=== PATIENT | female | born 1950 | race Caucasian/White ===

== ENCOUNTER → 2016-05-20 | Day surgery (SDC) | payer BC ==
[2016-05-14 15:30] VITALS: Ht 171.5 cm; Wt 61.4 kg
[~2016-05-20] VITALS: Ht 171.5 cm; Wt 61.4 kg
[~2016-05-20] MED LIST: 500ML BSS 0.3ML EPI 1:1000PF IRRIG ONE; ACETAMINOPHEN 325 MG TAB PO PRN; AMVISC PLUS 0.8ML SYRINGE INT OCU ONE; ATROPINE SULFATE 0.1 MG/ML 5ML SYR IV PRN; BSS FLUSH ONE; CALC-51 PO; CIPROFLOXACIN; ENDOCOAT 0.85ML SYRINGE INT OCU ONE; EpHEDrine SULFATE INJ 50 MG/ML AMP IV PRN; EpINEphrine INJ 1MG/ML AMP 1 MG/ML AMP ONE; LACTATED RINGER'S 1000ML 500 ML IV SCH; LIDOCAINE 4% OP SOLN DROP CHARGE ONE; LIDOCAINE 4% OP SOLN DROP CHARGE OPR SCH; LIDOCAINE HCL 1% MPF 2 ML VIAL ONE; MIDAZOLAM HCL 1 MG/ML 2ML VIAL ONE; MISSING PHYSICIAN SIGNATURE ON ORDER SCH; MIX: 4ML BSS 1ML EPI 1:1000 PF TOP ONE; MOXIFLOXACIN OPH SOLN PER DROP CHARGE ONE; PHENYLEPHRINE HCL 10% OP SOLN 5 ML BTL OPR ONE; PHENYLEPHRINE HCL 2.5% OP SOLN PER DROP CHARGE OPR SCH; POVIDONE-IODINE OP SOLN 30 ML BTL ONE; PRED1SUS3 OPL; PRED1SUS3 OPR; PROPARACAINE 0.5% OP SOLN PER DROP CHARGE OPR SCH; PROPARACAINE HCL 0.5% OP SOLN 15 ML BTL OPR ONE; TOBRAMYCIN/DEXAMETHASONE OPH OINT PER APPLN CHARGE ONE; [UNRECOGNIZED DRUG - CODE] PO
[2016-05-20] MEDS: PHENYLEPHRINE HCL 10% OP SOLN 5 ML BTL OPR SCH ×3 (11:08→11:18)
[2016-05-20] MEDS: TROPICAMIDE 1% OP SOLN PER DROP CHARGE OPR SCH ×3 (11:09→11:19)
[2016-05-20] MEDS: CYCLOPENTOLATE HCL 1% OP SOLN PER DROP CHARGE OPR SCH ×3 (11:10→11:20)
[2016-05-20] MEDS: MOXIFLOXACIN OPH SOLN PER DROP CHARGE OPR SCH ×3 (11:11→11:21)
--- NOTE | 2016-05-20 11:17 | History & Physical Bridge - [place] ---
H&P Re-Evaluation Bridge Note: I have examined the patient, reviewed the History & Physical and in the interval since the performance of the History & Physical I have noted the following changes of clinical significance: No changes noted
--- NOTE | 2016-05-20 12:33 | [facility] Post Operative Brief Note ---
Immediate Operative Summary Operative Date May 20, 2016. Pre-Operative Diagnosis Right Eye Cataract Post-Operative Diagnosis same Procedure(s) Performed Right Cataract Phacoemulsification With Intraocular Lens Implant Surgeon Dr. Mary Otoole Sap Bi Architect Surgeon(s) 0 Estimated Blood Loss 0 Findings right cataract Specimens none Complication(s) None Disposition
[2016-05-20 12:35] VITALS: TEMP 36.4
--- NOTE | 2016-05-20 12:36 | [facility] Operative Report ---
Operative Report Date of Service May 20, 2016. Operative Report DATE OF OPERATION: 05/20/16 PREOPERATIVE DIAGNOSIS: Senile nuclear cataract and astigmatism, right eye POSTOPERATIVE DIAGNOSIS: Senile nuclear cataract and astigmatism, right eye PROCEDURE PERFORMED: Femtosecond laser-assisted phacoemulsification with intraocular lens implantation, right eye SURGEON: Dr. Masoud Otoole ANESTHESIA: Topical with 1% intracameral lidocaine and monitored anesthesia care COMPLICATIONS: None DESCRIPTION OF PROCEDURE: After positively identifying the patient both verbally and by wristband in the preoperative area, the right eye was marked as the operative eye. Using a sterile marker, the 3:00, 6:00 and 9:00 position on the limbus were marked after placing a drop of proparacaine. The patient was first brought to the laser room where the laser was used to create the capsulotomy, lens fragmentation, arcuate incisions, and main incision. The patient was then brought back to the operating room by the anesthesia and nursing staff where they were given a drop of tetracaine and betadine into the operative eye. They were then sterilely prepped and draped in the standard fashion typical for ophthalmic surgery. Steri-strips were placed along the upper eyelids to keep the lashes back, and a lid speculum was placed into the operative eye. At this point, a documented time out was performed with members of the ophthalmology, nursing, and anesthesia staffs all agreeing upon the correct patient, correct location for surgery, correct procedure, and correct type and power of intraocular lens to be implanted. The microscope was then swung into position. Then, a paracentesis wound was made using a sideport blade. Then, in sequence, 1% preservative-free lidocaine followed by Endocoat viscoelastic was injected into the anterior chamber. Next , the main incision was opened with a Shukri spatula, and Utrata forceps were used to remove the capsulotomy. Hydrodissection was then performed with BSS on a flat-tip cannula. Next, the phacoemulsification handpiece was introduced into the eye and used to remove the nucleus in a ntcysa-pzm-uptegmz fashion. This was done without complication and then the irrigation-aspiration handpiece was introduced into the eye and used to remove all remaining cortical and epinuclear material. Amvisc was then injected into the anterior chamber as well as into the capsular bag and using the lens injector system, a ZXR00 14.0 D lens, serial number [id number], and expiration date 03/2021 was injected into the capsular bag and rotated into the correct position. Next, the irrigation- aspiration handpiece was used to remove all remaining Amvisc. BSS was used to hydrate the main wound, and then BSS was injected into the paracentesis site to reach physiologic pressure and then the main wound was checked and found to be watertight. The patient was given drops of Vigamox and tobradex ointment into the operative eye, and then the surrounding area was cleaned and dried. A clear plastic shield was placed over the eye and the patient was then sat up and taken from the operating room by the anesthesia staff having tolerated the procedure well and suffering no complications. DISPOSITION: The patient was returned to the recovery room in stable condition. I attest to the content of the Intraoperative Record and any orders documented therein. Any exceptions are noted below.
--- NOTE | 2016-05-20 12:37 | Discharge Instructions-SurgCtr ---
Discharge Instructions Date of Service May 20, 2016. Visit Reason for Visit: Cataract Right Eye Discharge Discharge Diagnosis / Problem: right cataract Discharge Goals Goal(s): Decrease discomfort, Improve function Activity Recommendations Activity Limitations: as noted below Anesthesia . Post Anesthesia Instructions: If you have had General Anesthesia or IV Sedation: * Do not drive today. * Resume driving when surgeon permits. * Do not make important decisions or sign legal documents today. * Call surgeon for: 1. Temperature elevations greater than 101 degrees F. 2. Uncontrollable pain. 3. Excessive bleeding. 4. Persistent nausea and vomiting. 5. Medication intolerance (nausea, vomiting or rash). * For nausea and vomiting use only clear liquids such as: tea, soda, bouillon until nausea subsides, then gradually increase diet as tolerated. * If you have any concerns or questions, call your surgeon's office. If physician is unavailable and it is an emergency, call 911 or go to the nearest emergency room. . Instructions / Follow-Up Instructions / Follow-Up ACTIVITY RECOMMENDATIONS: * Light activities. * You may walk outside, read, watch television. * You may notice redness on the white part of the eye and some blurry vision - this is normal. MEDICATIONS: Resume previous medications unless instructed otherwise by your surgeon. Start all eye drops at 2:30 pm today: * Eye drops (today): Prednisone - one drop in operative eye every 2 hours while awake Ciprofloxacin - one drop in operative eye every 2 hours while awake SPECIAL CARE INSTRUCTIONS: * Tape plastic shield over eye to sleep at night. Call your doctor at with any concerns or problems. FOLLOW UP VISIT: Follow-up with Dr Otoole at [place] office as scheduled. Diet Recommendations Home Diet: no limitations Procedures Procedures Performed: Right Cataract Phacoemulsification With Intraocular Lens Implant Pending Studies Studies pending at discharge: no Medical Emergencies . Who to Call and When: Medical Emergencies: If at any time you feel your situation is an emergency, please call 911 immediately. . Non-Emergent Contact Non-Emergency issues call your: Surgeon . . "Provider Documentation" section prepared by Masoud Otoole.
--- NOTE | 2016-05-20 12:38 | Anesthesia Progress Nt - [facility] ---
Anesthesia Post Op Note Date & Time May 20, 2016 at 12:38 Vital Signs Pain Intensity: 0 Vital Signs Past 12 Hours Date Time Temp Pulse Resp B/P Pulse Ox O2 Delivery O2 Flow Rate FiO2 05/20/16 12:03 61 18 122/59 100 05/20/16 11:58 55 18 122/60 100 05/20/16 10:54 37.0 66 16 145/70 99 Room Air Notes Mental Status: alert / awake / arousable, participated in evaluation Pt Amnestic to Procedure: Yes Nausea / Vomiting: adequately controlled Pain: adequately controlled Airway Patency, RR, SpO2: stable & adequate BP & HR: stable & adequate Hydration State: stable & adequate Anesthetic Complications: no major complications apparent
[2016-05-20 12:55] VITALS: BP 129/59; PULSE 56; O2SAT 99
== END | disposition home or self-care (01) ==
LOC: X.SURG 10:30
PROVIDERS: ATTEND Ophthalmology
DX: H25.11 Age-related nuclear cataract, right eye (principal); H52.201 Unspecified astigmatism, right eye; Z85.828 Personal history of other malignant neoplasm of skin

== ENCOUNTER → 2016-06-03 | Day surgery (SDC) | payer BC ==
[2016-06-02 13:19] VITALS: Ht 171.5 cm; Wt 61.4 kg
[~2016-06-03] VITALS: Ht 171.5 cm; Wt 61.4 kg
[~2016-06-03] MED LIST changes: -CIPROFLOXACIN; -EpHEDrine SULFATE INJ 50 MG/ML AMP IV PRN; +LIDOCAINE 4% OP SOLN DROP CHARGE OPL SCH; -LIDOCAINE 4% OP SOLN DROP CHARGE OPR SCH; -MISSING PHYSICIAN SIGNATURE ON ORDER SCH; +PHENYLEPHRINE HCL 10% OP SOLN 5 ML BTL OPL ONE; -PHENYLEPHRINE HCL 10% OP SOLN 5 ML BTL OPR ONE; -PHENYLEPHRINE HCL 2.5% OP SOLN PER DROP CHARGE OPR SCH; -PRED1SUS3 OPL; +PROPARACAINE 0.5% OP SOLN PER DROP CHARGE OPL SCH; -PROPARACAINE 0.5% OP SOLN PER DROP CHARGE OPR SCH; +PROPARACAINE HCL 0.5% OP SOLN 15 ML BTL OPL ONE; -PROPARACAINE HCL 0.5% OP SOLN 15 ML BTL OPR ONE; +VISCOAT 0.5ML SYRINGE INT OCU ONE
[2016-06-03] MEDS: PHENYLEPHRINE HCL 2.5% OP SOLN PER DROP CHARGE OPL SCH ×3 (07:53→08:03)
[2016-06-03] MEDS: TROPICAMIDE 1% OP SOLN PER DROP CHARGE OPL SCH ×3 (07:54→08:04)
[2016-06-03] MEDS: CYCLOPENTOLATE HCL 1% OP SOLN PER DROP CHARGE OPL SCH ×3 (07:55→08:05)
[2016-06-03] MEDS: MOXIFLOXACIN OPH SOLN PER DROP CHARGE OPL SCH ×2 (07:56→08:01)
--- NOTE | 2016-06-03 08:33 | History & Physical Bridge - [place] ---
H&P Re-Evaluation Bridge Note: Addendum: We are performing femtosecond laser-assisted cataract surgery on her left eye
[2016-06-03 09:16] VITALS: TEMP 36.4
--- NOTE | 2016-06-03 09:16 | [facility] Post Operative Brief Note ---
Immediate Operative Summary Operative Date Jun 03, 2016. Pre-Operative Diagnosis Left Eye Cataract Post-Operative Diagnosis Same Procedure(s) Performed Left Eye Cataract Phacoemulsification With Intraocular Lens Implant, Symfony Lens Surgeon Dr. Otoole Weed Cutter Surgeon(s) None Estimated Blood Loss None Findings left cataract Specimens None Complication(s) None Disposition
--- NOTE | 2016-06-03 09:19 | [facility] Operative Report ---
Operative Report Date of Service Jun 03, 2016. Operative Report DATE OF OPERATION: 06/03/16 PREOPERATIVE DIAGNOSIS: Senile nuclear cataract and astigmatism, left eye POSTOPERATIVE DIAGNOSIS: Senile nuclear cataract and astigmatism, left eye PROCEDURE PERFORMED: Femtosecond laser-assisted phacoemulsification with intraocular lens implantation, left eye SURGEON: Dr. Masoud Otoole ANESTHESIA: Topical with 1% intracameral lidocaine and monitored anesthesia care COMPLICATIONS: None DESCRIPTION OF PROCEDURE: After positively identifying the patient both verbally and by wristband in the preoperative area, the left eye was marked as the operative eye. Using a sterile marker, the 3:00, 6:00 and 9:00 position on the limbus were marked after placing a drop of proparacaine. The patient was first brought to the laser room where the femtosecond laser was used to create the capsulotomy, lens fragmentation, main wound, and arcuate incisions. The patient was then brought back to the operating room by the anesthesia and nursing staff where they were given a drop of tetracaine and betadine into the operative eye. They were then sterilely prepped and draped in the standard fashion typical for ophthalmic surgery. Steri-strips were placed along the upper eyelids to keep the lashes back, and a lid speculum was placed into the operative eye. At this point, a documented time out was performed with members of the ophthalmology, nursing, and anesthesia staffs all agreeing upon the correct patient, correct location for surgery, correct procedure, and correct type and power of intraocular lens to be implanted. The microscope was then swung into position. Then, a paracentesis wound was made using a sideport blade. Then, in sequence, 1% preservative-free lidocaine followed by Endocoat viscoelastic was injected into the anterior chamber. Next , the main incision was opened with a Shukri spatula, and Utrata forceps were used to remove the capsulotomy. Hydrodissection was then performed with BSS on a flat-tip cannula. Next, the phacoemulsification handpiece was introduced into the eye and used to remove the nucleus in a urqbtq-mbn-zxoretc fashion. This was done without complication and then the irrigation-aspiration handpiece was introduced into the eye and used to remove all remaining cortical and epinuclear material. Amvisc was then injected into the anterior chamber as well as into the capsular bag and using the lens injector system, a ZXR00 15.0 D lens, serial number [id number], and expiration date 03/2021 was injected into the capsular bag and rotated into the correct position to correctly line up with the toric marking. Next, the irrigation-aspiration handpiece was used to remove all remaining Amvisc. BSS was used to hydrate the main wound, and then BSS was injected into the paracentesis site to reach physiologic pressure and then the main wound was checked and found to be watertight. The patient was given drops of Vigamox and tobradex ointment into the operative eye, and then the surrounding area was cleaned and dried. A clear plastic shield was placed over the eye and the patient was then sat up and taken from the operating room by the anesthesia staff having tolerated the procedure well and suffering no complications. DISPOSITION: The patient was returned to the recovery room in stable condition. I attest to the content of the Intraoperative Record and any orders documented therein. Any exceptions are noted below.
--- NOTE | 2016-06-03 09:19 | Discharge Instructions-SurgCtr ---
Discharge Instructions Date of Service Jun 03, 2016. Visit Reason for Visit: Left Cataract Discharge Discharge Diagnosis / Problem: left cataract Discharge Goals Goal(s): Decrease discomfort, Improve function Activity Recommendations Activity Limitations: as noted below Anesthesia . Post Anesthesia Instructions: If you have had General Anesthesia or IV Sedation: * Do not drive today. * Resume driving when surgeon permits. * Do not make important decisions or sign legal documents today. * Call surgeon for: 1. Temperature elevations greater than 101 degrees F. 2. Uncontrollable pain. 3. Excessive bleeding. 4. Persistent nausea and vomiting. 5. Medication intolerance (nausea, vomiting or rash). * For nausea and vomiting use only clear liquids such as: tea, soda, bouillon until nausea subsides, then gradually increase diet as tolerated. * If you have any concerns or questions, call your surgeon's office. If physician is unavailable and it is an emergency, call 911 or go to the nearest emergency room. . Instructions / Follow-Up Instructions / Follow-Up ACTIVITY RECOMMENDATIONS: * Light activities. * You may walk outside, read, watch television. * You may notice redness on the white part of the eye and some blurry vision - this is normal. MEDICATIONS: Resume previous medications unless instructed otherwise by your surgeon. Start all eye drops at 11:30 am today: * Eye drops (today): Prednisone - one drop in operative eye every 2 hours while awake Ciprofloxacin - one drop in operative eye every 2 hours while awake SPECIAL CARE INSTRUCTIONS: * Tape plastic shield over eye to sleep at night. Call your doctor at with any concerns or problems. FOLLOW UP VISIT: Follow-up with Dr Otoole at [place] office as scheduled. Diet Recommendations Home Diet: no limitations Procedures Procedures Performed: Left Eye Cataract Phacoemulsification With Intraocular Lens Implant, Symfony Lens Pending Studies Studies pending at discharge: no Medical Emergencies . Who to Call and When: Medical Emergencies: If at any time you feel your situation is an emergency, please call 911 immediately. . Non-Emergent Contact Non-Emergency issues call your: Surgeon . . "Provider Documentation" section prepared by Masoud Otoole.
--- NOTE | 2016-06-03 09:26 | Anesthesia Progress Nt - [facility] ---
Anesthesia Post Op Note Date & Time Jun 03, 2016 at 09:27 Vital Signs Pain Intensity: 0 Vital Signs Past 12 Hours Date Time Temp Pulse Resp B/P Pulse Ox O2 Delivery O2 Flow Rate FiO2 06/03/16 09:16 36.4 55 16 123/67 100 Room Air 06/03/16 08:45 59 16 127/60 100 06/03/16 08:37 60 14 126/60 100 06/03/16 07:48 36.6 60 16 146/74 100 Room Air Notes Mental Status: alert / awake / arousable, participated in evaluation Pt Amnestic to Procedure: Yes Nausea / Vomiting: adequately controlled Pain: adequately controlled Airway Patency, RR, SpO2: stable & adequate BP & HR: stable & adequate Hydration State: stable & adequate Anesthetic Complications: no major complications apparent
[2016-06-03 09:41] VITALS: BP 130/68; PULSE 54; O2SAT 100
== END | disposition home or self-care (01) ==
LOC: X.SURG 07:35
PROVIDERS: ATTEND Ophthalmology
DX: H25.12 Age-related nuclear cataract, left eye (principal); Z98.41 Cataract extraction status, right eye; Z83.518 Family history of other specified eye disorder; Z80.8 Family history of malignant neoplasm of other organs or systems; Z98.890 Other specified postprocedural states; Z98.51 Tubal ligation status

== ENCOUNTER → 2016-06-30 | Outpatient (CLI) | payer BC ==
[~2016-06-30] MED LIST changes: -500ML BSS 0.3ML EPI 1:1000PF IRRIG ONE; -ACETAMINOPHEN 325 MG TAB PO PRN; -AMVISC PLUS 0.8ML SYRINGE INT OCU ONE; -ATROPINE SULFATE 0.1 MG/ML 5ML SYR IV PRN; -BSS FLUSH ONE; -ENDOCOAT 0.85ML SYRINGE INT OCU ONE; -EpINEphrine INJ 1MG/ML AMP 1 MG/ML AMP ONE; -LACTATED RINGER'S 1000ML 500 ML IV SCH; -LIDOCAINE 4% OP SOLN DROP CHARGE ONE; -LIDOCAINE 4% OP SOLN DROP CHARGE OPL SCH; -LIDOCAINE HCL 1% MPF 2 ML VIAL ONE; -MIDAZOLAM HCL 1 MG/ML 2ML VIAL ONE; -MIX: 4ML BSS 1ML EPI 1:1000 PF TOP ONE; -MOXIFLOXACIN OPH SOLN PER DROP CHARGE ONE; -PHENYLEPHRINE HCL 10% OP SOLN 5 ML BTL OPL ONE; -POVIDONE-IODINE OP SOLN 30 ML BTL ONE; -PROPARACAINE 0.5% OP SOLN PER DROP CHARGE OPL SCH; -PROPARACAINE HCL 0.5% OP SOLN 15 ML BTL OPL ONE; -TOBRAMYCIN/DEXAMETHASONE OPH OINT PER APPLN CHARGE ONE; -VISCOAT 0.5ML SYRINGE INT OCU ONE
--- NOTE | 2016-06-30 14:08 | DIAGNOSTIC IMAGING REPORT ---
LEFT FOOT 3 VIEWS HISTORY: LEFT FOOT PAIN COMPARISON: None. FINDINGS: There is no fracture or dislocation. Mild dorsal soft tissue swelling at the anterior talus. 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 No radiopaque foreign bodies. The bones are osteopenic. Plantar heel spur. IMPRESSION: 1. No fracture or dislocation within the left foot. 2. Mild dorsal soft tissue swelling at the level of the anterior talus. 3. Plantar heel spur. 4. Diffuse osteopenia. Electronically signed by: Abbe Duran M.D. 06/30/2016 2:05 PM Dictated Date/Time: 06/30/2016 2:03 PM
== END | disposition home or self-care (01) ==
LOC: C.RDSM 13:21
PROVIDERS: ATTEND Internal Medicine
DX: M79.672 Pain in left foot (principal)

== ENCOUNTER → 2016-08-18 | Outpatient (CLI) | payer BC ==
--- NOTE | 2016-08-19 13:13 | MAMMOGRAPHY REPORT ---
BILATERAL DIGITAL SCREENING MAMMOGRAM WITH CAD: 08/18/2016 CLINICAL HISTORY: Routine screening. Patient has no complaints. TECHNIQUE: Bilateral CC and MLO views were obtained. Current study was also evaluated with a Compute r Aided Detection (CAD) system. COMPARISON: Comparison is made to exams dated: 08/14/2015 mammogram, 08/10/2014 mammogram, 08/08/2013 ma mmogram, 08/04/2012 mammogram, 08/04/2011 mammogram, and 07/29/2010 mammogram - [facility] nter. BREAST COMPOSITION: There are scattered areas of fibroglandular density in both breasts. FINDINGS: The parenchymal pattern is similar to prior exams. There are scattered benign-appearing m icrocalcifications. No developing mass, architectural distortion or cluster of suspicious microcalci fications is seen in either breast. IMPRESSION: ACR BI-RADS CATEGORY 2: BENIGN There is no mammographic evidence of malignancy. A 1 year screening mammogram is recommended. The pa tient will receive written notification of the results. Approximately 10% of breast cancers are not detected with mammography. A negative mammographic report should not delay biopsy if a clinically suggestive mass is present. Chelly Castellanos M.D. ay/:08/18/2016 18:11:19 Psychiatric Nursing Aide: Susi VERAS(R)(M), [facility] letter sent: Normal 1/2 BI-RADS Code: ACR BI-RADS Category 2: Benign
== END | disposition home or self-care (01) ==
LOC: C.MAMM 13:19
PROVIDERS: ATTEND Family Medicine
DX: Z12.31 Encounter for screening mammogram for malignant neoplasm of breast (principal)

== ENCOUNTER → 2016-12-21 | Outpatient (CLI) | payer BC ==
--- NOTE | 2016-12-21 13:23 | DIAGNOSTIC IMAGING REPORT ---
SINUSES MIN 3 VIEWS ROUTINE CLINICAL HISTORY: 66 years-old Female presenting with R05 [id number]. TECHNIQUE: 5 views of the sinuses were obtained. COMPARISON: None. FINDINGS: Paranasal sinuses and mastoid air cells clear. Bony nasal septum midline. Bony orbits normal. Calvarium intact. Upper cervical spine with mild degenerative change. IMPRESSION: Grossly patent sinuses. Electronically signed by: Rob Solis M.D. 12/21/2016 1:22 PM Dictated Date/Time: 12/21/2016 1:20 PM
== END | disposition home or self-care (01) ==
LOC: C.RAD1850 13:00
PROVIDERS: ATTEND Family Medicine
DX: J01.90 Acute sinusitis, unspecified (principal)

== ENCOUNTER 2024-03-17 10:19 | Observation (INO) ==
[2024-03-17 11:45] LABS: Appearance Urine Clear (Clear); Bilirubin Urine Negative (Negative); Blood Urine Negative (Negative); Color Urine Yellow; Glucose Urine UA Negative (Negative); Ketones Urine Negative (Negative); Leukocyte Esterase Urine Negative (Negative); Nitrite Urine Negative (Negative); Protein Urine Negative (Negative); Specific Gravity Urine 1.006 (1.000-1.030); Urobilinogen Urine Negative (Negative)
--- NOTE | 2024-03-17 11:55 | Emergency Department Note ---
Impression & Plan Hypertension, Dizziness ED Provider Note NAME: SELVIN WASHINGTON AGE: 73 SEX: F : 1950 ARRIVES VIA: Walk-In INFORMANT: Patient ED PROVIDER(S): Mason Almanza DO CHIEF COMPLAINT: Headache, lightheadedness HPI: Patient is a 73-year-old female with a past medical history of spinal stenosis, lumbar radiculopathy who presents to the ER for feeling lightheaded and a headache this morning. She notes she has been having a headache off and on and lightheadedness the past week. She gets it only when she changes positions in regards to the lightheadedness. Headache is located in the frontal region and is very light. Denies any focal weakness or numbness in the arms or legs. No neck pain. No chest pain or shortness of breath. No belly pain. No nausea, vomiting, or diarrhea. No weakness or numbness in the arms or legs. She notes she does not have any lightheadedness currently at this time. It lasted for about 2 hours with changing positions and again has been coming going for the past several days. ADDITIONAL HISTORY OBTAINED: Per HPI Chronic Medical/Social Conditions Affecting Care: Per HPI PAST MEDICAL HISTORY:See Below PAST SURGICAL HISTORY:See Below FAMILY HISTORY:See Below SOCIAL HISTORY:See Below HOME MEDICATIONS:See Below ALLERGIES:See Below VITALS:See Below PHYSICAL EXAMINATION: GENERAL: Sitting up in bed, alert, well appearing, well nourished, no distress, non-toxic EYE EXAM: normal conjunctiva. PERRL and EOM's intact. OROPHARYNX: no exudate, no erythema, lips, buccal mucosa, and tongue normal and mucous membranes are moist NECK: supple, no nuchal rigidity, no adenopathy, non-tender LUNGS: Clear to auscultation. Normal chest wall mechanics HEART: no murmurs, S1 normal and S2 normal ABDOMEN: abdomen soft, non-tender, normo-active bowel sounds, no masses, no rebound or guarding. UPPER EXTREMITIES: upper extremities are grossly normal. LOWER EXTREMITIES: No pitting edema. NEURO EXAM: Normal sensorium, cranial nerves II-XII intact, normal speech, no weakness of arms, no weakness of legs. No drift. Finger to nose intact. Gross sensation intact. MEDICAL DECISION MAKING: Patient is a 73-year-old female who presents to the ER for the below stated complaint. IV was established and blood work was obtained. Labs show mild leukopenia 3.5. No significant anemia. BMP along with LFTs bilirubin and troponin was negative. UA was clean. Viral panel was negative. CT angios of the head and neck showed age-indeterminate vertebral occlusion. Discussed with Dr. Llamas from [facility] who recommended admission, aspirin and Plavix with full workup for TIA. Patient was updated at bedside and discussed case with the hospitalist for further evaluation management treatment. Patient is clearly not a TNK candidate as symptoms have been present off and on all week without any focal findings. Consults/Care Managements Discussions: Per [facility] Triage Nursing notes reviewed. Limited review of prior medical records performed Vital Signs: reviewed and remarkable for no significant abnormalities Differential diagnosis: Differential Diagnosis includes but is not limited to headache, tension headache, cluster headache, migraine, subarachnoid hemorrhage, meningitis, mass, central venous thrombus, concussion, trauma and epidural/subdural hemorrhage. ER treatment provided: See below Diagnostics interpreted by me include EKG and cardiac monitoring as listed below: -Cardiac Monitoring: An order was placed for continuous cardiac monitoring. The monitor shows a rate of 82 with sinus rhythm. Normal axis PVC present QTc 453 -ECG: Sinus rhythm rate 82 Normal axis PVCs QTc 453 -Laboratory studies:Interpreted by me as stated above in MDM and shown below. Imaging studies: Xrays: As interpreted by me: Portable AP upright 1 view of the chest shows no focal infiltrate CTs show: CT angios of the head and neck as described above in [facility] Procedures:none Critical Care: None Past Med/Surg History Problem List (Updated 03/17/24 @ 17:36 by Maosn Almanza DO) Hypertension (Acute) Dizziness (Acute) Spinal stenosis of lumbar region Lumbar facet joint syndrome Lumbar radiculopathy Endometrial polyp (Acute) Medical History (Updated 03/17/24 @ 17:36 by Mason Almanza DO) High cholesterol Surgical History Status post hysteroscopic polypectomy S/P dilatation and curettage S/P tubal ligation Family History Mother Heart disease Sister Breast cancer Social History (Updated 03/01/24 @ 13:[address] RN) Smoking Status: Never smoker Hx Alcohol Use: No Hx Substance Use: No Preferred Language: Danish Communication Ability: Effective Visual Impairment: No Limitations Hearing Ability: Normal Beliefs That Will Affect Care: None marital status: Current Living Situation: Spouse current occupational status: retired 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 Feels Safe at Home: Yes Allergies Allergies Allergy/AdvReac Type Severity Reaction Status Date / Time No Known Allergies Allergy Unknown Verified 03/01/24 13:17 Home Meds Home Medications Medication Instructions Recorded Confirmed atorvastatin 10 mg tablet 10 mg PO DAILY 03/01/24 03/17/24 acetaminophen 500 mg tablet 500 mg PO Q6H PRN Pain 03/17/24 03/17/24 Results & Data (ED) Vital Signs Vital Signs - 24 hr 03/17/24 11:05 03/17/24 14:23 03/17/24 14:30 Temperature 36.5 C Temperature Source Skin Pulse Rate - Lying Pulse Rate - Sitting Pulse Rate - Standing Pulse Rate 70 59 L Pulse Rate [Apical] 65 Pulse Rate from SpO2 Sensor Pulse Rhythm [Apical] Regular Pulse Strength [Apical] Normal Respiratory Rate 16 18 Respiratory Effort / Characteristics Non-Labored Spontaneous Non-Labored Spontaneous Respiratory Depth Normal Normal Respiratory Pattern Regular Regular Blood Pressure - Lying Blood Pressure - Sitting Blood Pressure- Standing Blood Pressure 164/81 H 171/75 H Blood Pressure [Right Arm] 168/83 H Blood Pressure Mean 108 110 Blood Pressure Mean [Right Arm] 111 Blood Pressure Position [Right Arm] Semi-fowlers Pulse Oximetry 98 100 100 Oxygen Delivery Method Room Air Room Air Sepsis Recent Fever Within 48 Hours No Sepsis New/Unexplained Change in Mental Status N/A Sepsis Action Taken by Nursing No Action Required 03/17/24 14:42 03/17/24 14:48 03/17/24 15:29 Temperature Temperature Source Pulse Rate - Lying Pulse Rate - Sitting Pulse Rate - Standing Pulse Rate 61 63 Pulse Rate [Apical] 70 Pulse Rate from SpO2 Sensor 63 Pulse Rhythm [Apical] Regular Pulse Strength [Apical] Respiratory Rate 16 19 Respiratory Effort / Characteristics Non-Labored Spontaneous Respiratory Depth Normal Respiratory Pattern Regular Blood Pressure - Lying Blood Pressure - Sitting Blood Pressure- Standing Blood Pressure 169/87 H Blood Pressure [Right Arm] 163/71 H Blood Pressure Mean 114 Blood Pressure Mean [Right Arm] 101 Blood Pressure Position [Right Arm] Lying Pulse Oximetry 100 98 Oxygen Delivery Method Room Air Room Air Sepsis Recent Fever Within 48 Hours Sepsis New/Unexplained Change in Mental Status Sepsis Action Taken by Nursing 03/17/24 16:13 03/17/24 17:00 Temperature Temperature Source Pulse Rate - Lying 74 Pulse Rate - Sitting 75 Pulse Rate - Standing 82 Pulse Rate Pulse Rate [Apical] 60 Pulse Rate from SpO2 Sensor Pulse Rhythm [Apical] Regular Pulse Strength [Apical] Respiratory Rate 14 Respiratory Effort / Characteristics Non-Labored Spontaneous Respiratory Depth Normal Respiratory Pattern Regular Blood Pressure - Lying 171/82 H Blood Pressure - Sitting 179/79 H Blood Pressure- Standing 203/90 H Blood Pressure Blood Pressure [Right Arm] 149/65 H Blood Pressure Mean Blood Pressure Mean [Right Arm] 93 Blood Pressure Position [Right Arm] Pulse Oximetry 99 Oxygen Delivery Method Room Air Sepsis Recent Fever Within 48 Hours Sepsis New/Unexplained Change in Mental Status Sepsis Action Taken by Nursing Laboratory Data 03/17/24 11:33 03/17/24 11:33 Lab Results 03/17/24 03/17/24 03/17/24 Range/Units 11:28 11:33 16:10 WBC 3.51 L (4.8-10.8) K/ul RBC 4.55 (4.20-5.40) M/uL Hgb 14.1 (12.0-16.0) g/dl Hct 45.2 (37.0-47.0) % MCV 99.3 (80.0-100.0) fL MCH 31.0 (25.0-34.0) pg MCHC 31.2 L (32.0-36.0) g/dL RDW Std Deviation 46.7 H (36.4-46.3) fL RDW Coeff of Danish 12.5 (11.5-14.5) % Plt Count 224 (130-400) K/uL MPV 10.8 (9.4-12.4) fL Immature Gran % (Auto) 0.3 % Neut % (Auto) 68.3 % Lymph % (Auto) 21.1 % [place] % (Auto) 8.5 % Eos % (Auto) 0.9 % Baso % (Auto) 0.9 % Neut # (Auto) 2.40 (1.40-6.50) K/uL Lymph # (Auto) 0.74 L (1.20-3.40) K/uL [place] # (Auto) 0.30 (0.11-0.59) K/uL Eos # (Auto) 0.03 (0.00-0.50) K/uL Baso # (Auto) 0.03 (0.00-0.20) K/uL Immature Gran # (Auto) 0.01 (0.01-0.20) K/uL Sodium 140 (136-145) mmol/L Potassium 3.7 (3.5-5.1) mmol/L Chloride 103 (98-107) mmol/L Carbon Dioxide 32 (21-32) mmol/L Anion Gap 5 (3-11) BUN 16 (6-23) mg/dl Creatinine 0.71 (0.6-1.2) mg/dl Est Cr Clr Drug Dosing 66.6 ml/min eGFR 88.61 BUN/Creatinine Ratio 22.5 H (10-20) Glucose 94 (70-99(Fasting)) mg/dl Calcium 9.4 (8.6-10.3) mg/dl Total Bilirubin 0.6 (0.2-1.0) mg/dl AST 27 (13-39) U/L ALT 13 (7-52) U/L Alkaline Phosphatase 90 (34-104) U/L Troponin I High Sens 5.8 (0-14) pg/ml Total Protein 8.5 H (6.0-8.3) gm/dl Albumin 4.7 (3.4-5.0) gm/dl Globulin 3.8 (2.5-4.0) gm/dl Albumin/Globulin Ratio 1.2 (0.9-2) Urine Color Yellow Urine Appearance Clear (Clear) Urine pH 8.0 H (4.5-7.5) Ur Specific [place] 1.006 (1.000-1.030) Urine Protein Negative (Negative) Urine Glucose (UA) Negative (Negative) Urine Ketones Negative (Negative) Urine Blood Negative (Negative) Urine Nitrite Negative (Negative) Urine Bilirubin Negative (Negative) Urine Urobilinogen Negative (Negative) Ur Leukocyte Esterase Negative (Negative) Adenovirus (PCR) Not Detected (NotDetected) B. pertussis DNA (PCR) Not Detected (NotDetected) B.parapertussis DNA PCR Not Detected (NotDetected) C. pneumoniae DNA (PCR) Not Detected (NotDetected) Coronavirus OC43 (PCR) Not Detected (NotDetected) Coronavirus HKU1 (PCR) Not Detected (NotDetected) Coronavirus 229E (PCR) Not Detected (NotDetected) SARS-CoV-2 (PCR) Not Detected (NotDetected) Coronavirus NL63 (PCR) Not Detected (NotDetected) Human Metapneumovir PCR Not Detected (NotDetected) Influenza Type A (PCR) Not Detected (NotDetected) Influenza Type B (PCR) Not Detected (NotDetected) M. pneumoniae (PCR) Not Detected (NotDetected) Parainfluenza 1 (PCR) Not Detected (NotDetected) Parainfluenza 2 (PCR) Not Detected (NotDetected) Parainfluenza 3 (PCR) Not Detected (NotDetected) Parainfluenza 4 (PCR) Not Detected (NotDetected) RSV (PCR) Not Detected (NotDetected) Entero/Rhino (PCR) Not Detected (NotDetected) Administered Medications Discontinued Medications Aspirin (Aspirin Chew 324 Mg) 81 mg PO NOW STA Stop: 03/17/24 13:50 Last Admin: 03/17/24 14:15 Dose: 81 mg Documented By: Clopidogrel Bisulfate (Clopidogrel Bisulfate 300 Mg Tab) 300 mg PO NOW STA Stop: 03/17/24 13:50 Last Admin: 03/17/24 14:16 Dose: 300 mg Documented By: Sodium Chloride (Nss) 500 mls @ 999 mls/hr IV .Q31M ONE Stop: 03/17/24 12:21 Last Infusion: 03/17/24 14:22 Dose: Infused Documented By: Admin: 03/17/24 12:02 Dose: 999 mls/hr Documented By: STEPHENIE Ioversol (Optiray 320 125ml) 120 ml IV ONCE ONE Stop: 03/17/24 12:30 Last Admin: 03/17/24 12:29 Dose: 120 ml Documented By: EDK Imaging Data Radiologist's Impression: Chest X-Ray 03/17/24 11:07 XR chest 1V not portable CLINICAL HISTORY: HTN TECHNIQUE: Single frontal radiograph of the chest was obtained. Comparison: None available at the time of this dictation. FINDINGS: No lines and tubes are seen. The cardiomediastinal silhouette is normal. The lungs are clear. No evidence of pleural effusion or pneumothorax. IMPRESSION: No acute chest disease. ACT 112: Negative or not required by law. Electronically signed by: Kishor Luu M.D. 03/17/2024 1:25 PM Head CTA 03/17/24 11:51 CT angio head wo/w CLINICAL HISTORY: heard TECHNIQUE: Contiguous axial CT images of the head were acquired from the base of the skull to the vertex without intravenous contrast administration. CT angiography of the head was performed following intravenous administration of iodinated contrast. Coronal and sagittal MIPS were obtained from the axial data set and were submitted for review. Automated dose lowering techniques and/or adjustment according to patient size were utilized for this examination. All measurements were calculated based on NASCET criteria. CT DOSE: 1152.6 mGy.cm Comparison: None available at the time of this dictation. FINDINGS: CT head: There is no acute intracranial hemorrhage or evidence of acute territorial infarction. No shift of the midline structures, mass effect, or extra-axial abnormalities are shown. CTA Head: The anterior and posterior cerebral circulations are patent. origin of the right posterior cerebral artery is seen. Incidentally noted, the left posterior circulation appears supplied from the right vertebral artery5 in this patient with diminutive left vertebral artery. IMPRESSION: 1. No acute intracranial hemorrhage, evidence of acute territorial infarction, or other acute intracranial disease process. 2. No occlusion, hemodynamically significant stenosis, aneurysm, dissection, or arteriovenous malformation in the major intracranial arteries. Assessment of stenosis of the internal carotid arteries is based on NASCET criteria. ACT 112: Negative or not required by law. Electronically signed by: Kishor Luu M.D. 03/17/2024 1:02 PM Neck CTA 03/17/24 11:51 CT ANGIOGRAPHY OF THE NECK WITH CONTRAST CLINICAL HISTORY: lightheaded COMPARISON STUDY: No previous studies for comparison. Technique: CT angiography of the carotid and vertebral arteries was obtained using Optiray and 3D reconstruction on an independent workstation. NASCET criteria was utilized. Automated exposure control was utilized for the study. A dose lowering technique was utilized adhering to the principles of ALARA. Findings: Subpleural densities within the visualized lung apices favor scarring. There are no cervical spine fractures. There is no cervical lymphadenopathy. Bilateral carotid bifurcations are patent. Multifocal irregularity and beaded appearance of the cervical bilateral internal carotid arteries is noted. The right vertebral artery is dominant. The left vertebral artery is diminutive. No flow is identified within the distal cervical portion of the left vertebral artery. IMPRESSION: 1. Multifocal luminal irregularity and beaded appearance of the cervical bilateral internal carotid arteries which raises the possibility of fibromuscular dysplasia. 2. Dominant, patent right vertebral artery. Diminutive left vertebral artery, on a congenital basis. No flow identified within the mid to distal cervical left vertebral artery. This finding is age indeterminate and may be chronic. ACT 112: Negative or not required by law. Electronically signed by: Irving Main M.D. 03/17/2024 1:07 PM Discharge Plan Visit Data Chief Complaint: Hypertension Stated Complaint: DIZZY, HIGH BP ED Provider: Mason Almanza Discharge Problem: Hypertension, Dizziness Forms Stand Alone Forms: My [facility] [employer] Prescriptions Prescriptions: No Action atorvastatin 10 mg tablet 10 mg PO DAILY acetaminophen 500 mg Tablet 500 mg PO Q6H PRN (Reason: Pain) Referrals Referrals: Ivet Sanchez MD [Primary Care Provider] - Discharge Problem: Hypertension Qualifiers: Hypertension type: unspecified Qualified Code(s): I10 - Essential (primary) hypertension
[2024-03-17 11:58] LABS: Basophils # (auto) 0.03 K/uL (0.00-0.20); Basophils % (auto) 0.9 %; Eosinophils # (auto) 0.03 K/uL (0.00-0.50); Eosinophils % (auto) 0.9 %; Hematocrit (blood only) 45.2 % (37.0-47.0); Hemoglobin 14.1 g/dl (12.0-16.0); Immature Granulocytes # (auto) 0.01 K/uL (0.01-0.20); Immature Granulocytes % (auto) 0.3 %; Lymphocytes # (auto) 0.74 K/uL (1.20-3.40); Lymphocytes % (auto) 21.1 %; Mean Corpuscular Hgb Conc 31.2 g/dL (32.0-36.0); Mean Corpuscular Volume 99.3 fL (80.0-100.0); Mean Platelet Volume 10.8 fL (9.4-12.4); Monocytes % (auto) 8.5 %; Neutrophils % (auto) 68.3 %; Platelet Count 224 K/uL (130-400); RDW Coefficient of Variation 12.5 % (11.5-14.5); RDW Standard Deviation 46.7 fL (36.4-46.3); Red Blood Count 4.55 M/uL (4.20-5.40); White Blood Count 3.51 K/ul (4.8-10.8)
[2024-03-17] MEDS: SODIUM CHLORIDE 0.9% 500 ML IV ONE (12:02)
[2024-03-17 12:08] LABS: Albumin Globulin Ratio 1.2 (0.9-2); Albumin Level 4.7 gm/dl (3.4-5.0); BUN Creatinine Ratio 22.5 (10-20); Bilirubin,Total 0.6 mg/dl (0.2-1.0); Calcium 9.4 mg/dl (8.6-10.3); Creatinine Clr Calc Pharmacy 66.6 ml/min; Globulin 3.8 gm/dl (2.5-4.0); Potassium 3.7 mmol/L (3.5-5.1); Total Protein 8.5 gm/dl (6.0-8.3)
[2024-03-17 12:15] LABS: Troponin I High Sensitivity 5.8 pg/ml (0-14)
[2024-03-17] MEDS: OPTIRAY 320 125ml IV ONE (12:29)
--- NOTE | 2024-03-17 13:05 | CT Scan Report ---
CT angio head wo/w CLINICAL HISTORY: heard TECHNIQUE: Contiguous axial CT images of the head were acquired from the base of the skull to the dinesh bailey without intravenous contrast administration. CT angiography of the head was performed following intravenous administration of iodinated contrast. Coronal and sagittal MIPS were obtained from the ax ial data set and were submitted for review. Automated dose lowering techniques and/or adjustment acc ording to patient size were utilized for this examination. All measurements were calculated based on NASCET criteria. CT DOSE: 1152.6 mGy.cm Comparison: None available at the time of this dictation. FINDINGS: CT head: There is no acute intracranial hemorrhage or evidence of acute territorial infarction. No sh ift of the midline structures, mass effect, or extra-axial abnormalities are shown. CTA Head: The anterior and posterior cerebral circulations are patent. origin of the right pos terior cerebral artery is seen. Incidentally noted, the left posterior circulation appears supplied f rom the right vertebral artery5 in this patient with diminutive left vertebral artery. IMPRESSION: 1. No acute intracranial hemorrhage, evidence of acute territorial infarction, or other acute intrac ranial disease process. 2. No occlusion, hemodynamically significant stenosis, aneurysm, dissection, or arteriovenous malfor mation in the major intracranial arteries. Assessment of stenosis of the internal carotid arteries is based on NASCET criteria. ACT 112: Negative or not required by law. Electronically signed by: Kishor Luu M.D. 03/17/2024 1:02 PM
--- NOTE | 2024-03-17 13:09 | CT Scan Report ---
CT ANGIOGRAPHY OF THE NECK WITH CONTRAST CLINICAL HISTORY: lightheaded COMPARISON STUDY: No previous studies for comparison. Technique: CT angiography of the carotid and vertebral arteries was obtained using Optiray and 3D rec onstruction on an independent workstation. NASCET criteria was utilized. Automated exposure control was utilized for the study. A dose lowering technique was utilized adhering to the principles of ALA RA. Findings: Subpleural densities within the visualized lung apices favor scarring. There are no cervica l spine fractures. There is no cervical lymphadenopathy. Bilateral carotid bifurcations are patent. M ultifocal irregularity and beaded appearance of the cervical bilateral internal carotid arteries is n oted. The right vertebral artery is dominant. The left vertebral artery is diminutive. No flow is isaias ntified within the distal cervical portion of the left vertebral artery. IMPRESSION: 1. Multifocal luminal irregularity and beaded appearance of the cervical bilateral internal carotid a rteries which raises the possibility of fibromuscular dysplasia. 2. Dominant, patent right vertebral artery. Diminutive left vertebral artery, on a congenital basis. No flow identified within the mid to distal cervical left vertebral artery. This finding is age indet erminate and may be chronic. ACT 112: Negative or not required by law. Electronically signed by: Irving Main M.D. 03/17/2024 1:07 PM
--- NOTE | 2024-03-17 13:26 | XRay Report ---
XR chest 1V not portable CLINICAL HISTORY: HTN TECHNIQUE: Single frontal radiograph of the chest was obtained. Comparison: None available at the time of this dictation. FINDINGS: No lines and tubes are seen. The cardiomediastinal silhouette is normal. The lungs are clear. No evid ence of pleural effusion or pneumothorax. IMPRESSION: No acute chest disease. ACT 112: Negative or not required by law. Electronically signed by: Kishor Luu M.D. 03/17/2024 1:25 PM
[2024-03-17] MEDS: ASPIRIN CHEW 324 MG PO STA (14:15)
[2024-03-17] MEDS: CLOPIDOGREL BISULFATE 300 MG TAB PO STA (14:16)
--- OUTSIDE RECORDS SUMMARY | 2024-03-17 14:35 | External Medical Summary | Continuity of Care Document ---
Author Name Unknown Organization [place] [id number] Address [address], [place] [id number] Care Team Providers Care Corduroy Cutting Supervisor Name Role Phone Ivet Sanchez Primary Care Physician [phone] Encounter [facility] [id number] Date(s): 03/14/24 - 03/14/24 [facility] [address] [facility] Entr[facility] A, [address] [place] [id number] [phone] Encounter Diagnosis Urethral caruncle(Discharge Diagnosis) - 03/14/24 Urge incontinence(Discharge Diagnosis) - 03/14/24 Body mass index [BMI] 21.0-21.9, adult(Discharge Diagnosis) - 03/14/24 Discharge Disposition: Home or Self Care Attending Physician: MD Stafford Sarah S Referring Physician: MD Sanchez Amy L Allergies, Adverse Reactions, Alerts No Known Medication Allergies Substance Criticality Severity Reaction Reaction Severity Status Dust congestion Active Mold Nasal congestion Act jamarcus Assessment and Plan Extracted from: Title:Urogyn New Visit Note Author:MD Rivera, Renetta Bazzi Date:03/14/24 1.Urethral caruncle No evidence of pelvic organprolapse on examination. We reviewed urethral caruncle isbenign and due to hypoestrogenic state. Reviewed initiation of vaginal estradiol if symptomatic. She would like to monitor at this time. 2.Urge incontinence For OAB/UUI, we reviewed the pathophysiology, etiology and management in great detail. Handouts were provided for additional education.She understandsthat OAB is a chronic disorder that may not be "curable"; however, treatments canimprovequality of life significantly. We reviewed the AUA guidelines on OAB management in detail. She has optimized her fluid intake and we did review urge suppression techniques, as well as formal PFPT or medication. She will consider this. 3.Body mass index [BMI] 21.0-21.9, adult She is not scheduled to follow-up at this time and will follow-up as needed if interested in any of the above interventions. Immunizations Given and Recorded Vaccine Date Status Refusal Reason tetanus/diphtheria/pertuss, acel (Tdap) 1 05/31/23 Given tetanus/diphtheria/pertuss, acel (Tdap) 06/01/12 R ecorded tetanus/diphtheria/pertuss, acel (Tdap) 03/15/12 R ecorded tetanus/diphtheria/pertuss, acel (Tdap) 2 03/15/12 Recorded RSV Vaccine Unspecified 02/18/23 Recorded SARS COVID Vaccine Unspecified 12/07/22 Recorded SARS-CoV-2 mRNA (Pfizer 12+) bivalent 12/19/21 Rec orded SARS-CoV-2 mRNA ([id number]-sef) 06/21/21 Re corded SARS-CoV-2 (COVID-19) mRNA BNT-162b2 vax 01/06/21 Recorded SARS-CoV-2 (COVID-19) mRNA BNT-162b2 vax 3 05/24/20 Recorded SARS-CoV-2 (COVID-19) mRNA BNT-162b2 vax 4 04/26/20 Recorded zoster vaccine, inactivated 10/15/20 Recorded zoster vaccine, inactivated 5 07/24/20 Recorded influenza virus vaccine, inactivated 12/11/19 Give n influenza virus vaccine, inactivated 01/04/19 Give n influenza virus vaccine, inactivated 12/22/17 Give n influenza virus vaccine, inactivated 01/06/17 Give n influenza virus vaccine, inactivated 01/21/16 Mike rded influenza virus vaccine, inactivated 01/11/15 Give n influenza virus vaccine, inactivated 03/15/12 Mike rded influenza virus vaccine, inactivated 6 03/15/12 Re corded pneumococcal 13-valent vaccine 08/09/15 Given zoster vaccine live 02/27/15 Recorded pneumococcal 23-valent vaccine 01/11/15 Given 1Early/Late Reason: Early/Late Reason: Other : N/A 2Result Comment: 2017-06-01: Historical information-source unspecified 3Result Comment: Unit: Unknown Route: Intramuscularly Director Of Managed Care: [employer] 4Result Comment: Unit: Unknown Route: Intramuscularly Director Of Managed Care: [employer] 5Result Comment: site left upper arm, radiologist physician-HeTexted, lot# [id number], exp 12/20/2021, per Haven Perez 6Result Comment: 2017-06-01: Historical information-source unspecified Medications atorvastatin 10 mg oral tablet Start: 01/24/24 8:28:00 AM EST, 1 tab, PO, Daily, Disp# 90 tab, Refills: 3, Pharmacy: [id number] Start Date: 01/24/24 Stop Date: 01/18/25 Status: Ordered Calcium Liquid Softgel Start: 09/10/15 1:06:00 PM EDT Start Date: 09/10/15 Status: Ordered Kerydin 5% topical solution Start: 03/17/23 11:54:00 AM EST, See Instructions, Disp# 10 mL, Refills: 6, Apply to affected toenails once per day for at least 6 months, Pharmacy: [id number] Start Date: 03/17/23 Status: Ordered Mental Status 03/14/24 Barriers to Learning one year None evide nt Mandatory Health Literacy Documentation Yes Health Literacy Communication Barriers N ever Primary Language Luxembourgish Problem List Condition Confirmation Course Effective Dates Status H ealth Status Informant Actinic keratosis Confirmed Active Abdominal pain, acute, generalized Confirmed Active Left carotid bruit Confirmed Active Chronic constipation Confirmed Active ETD (eustachian tube dysfunction) Confirmed Active Blood pressure elevated without history of HTN Confirmed Active FAMILY HISTORY OF OTHER SPECIFIED MALIGNANT NEOPLASM 1 Confirmed Active Encounter for follow-up examination after completed treatment for cancer Confirmed Active Hx of skin malignancy Confirmed Active Inflamed seborrheic keratosis Confirmed Active Lentigo Confirmed Active Leukopenia Confirmed Active Longitudinal ridging of nail Confirmed Active Skin cancer, basal cell Confirmed Active Milia Confirmed Active Tinea unguium Confirmed Active Onychomycosis of right great toe Confirmed Active Onychomycosis of left great toe Confirmed Active Ocular migraine Confirmed Active Osteopenia 2 Confirmed Active Osteoporosis Confirmed Active Annual physical exam Confirmed Active Seborrheic keratoses Confirmed Active Marquez angioma Confirmed Active SK (seborrheic keratosis) Confirmed Active Weight disorder Confirmed Active 1son had skin CA 2DEXA 03/10/2011 Diagnosis Diagnosis Type Effective Dates Health Status Clinical Service Informant Urge incontinence Discharge Diagnosis 03/14/24 Non-Specified Body mass index [BMI] 21.0-21.9, adult Discharge Diagnosis 03/14/24 Non-Specified Urethral caruncle Discharge Diagnosis 03/14/24 Non-Specified Procedures Procedure Date Related Diagnosis Body Site Status Hand X-ray 1 10/20/22 Completed X-ray of left foot 2 10/20/22 Comp leted Mammogram 3 10/02/22 Completed Ultrasound of blood vessel o f lower extremity 4 07/11/22 Completed Colonoscopy 5, 6 04/02/[address] of abdomen and pelvis 7 02/02/22 Completed Bone density scan 8 11/14/21 Compl eted Mammogram 9 09/26/21 Completed Mammogram 10 09/03/20 Completed Shave biopsy and cauterization of skin 04/29/20 Completed Mammogram 11 08/29/19 Completed Mammogram 12 08/23/18 Completed Shave biopsy and cauterisation of skin 06/16/18 Completed DEXA (dual energy X-ray phot on absorptiometry) scan of lateral spine 13 03/01/18 Completed Mammogram 14 08/19/17 Completed Sinuses X-ray 15, 16 12/21/16 Comp leted Mammogram 17 08/18/16 Completed Foot X-ray 18 06/30/16 Completed Cataract surgery 19 06/03/16 Compl eted Phacoemulsification, right eye 20 05/20/16 Completed Cataract extraction 05/2016 Compl eted X-ray of left ankle 21 10/11/15 Co mpleted Bilateral standing mortise v iews of the ankles 22 09/30/15 Completed X-ray of left ankle 23 09/28/15 Co mpleted X-ray of left ankle 24 09/28/15 Co mpleted Bone density scan 25, 26 08/26/15 Completed Mammogram-bilateral with CAD 27 08/14/15 Completed X-ray-right tibia/fibula 2 views 28 04/17/15 Completed Mohs micrographic surgery 04/10/15 Completed Shave biopsy 03/19/15 Completed Mammogram 29 08/10/14 Completed Dual energy X-ray absorptiom etry (DEXA) scan T score 08/17/13 Completed PAP test date 30 07/12/13 Complete d Papanicolaou smear 31 07/12/13 Com pleted Shave biopsy of skin 01/03/13 Comp leted Hysteroscopy 32 11/23/12 Completed Colonoscopy 33 10/20/12 Completed Colonoscopy 34 10/20/12 Completed Endometrial biopsy 35, 36 10/03/12 Completed US pelvic scan 37 08/31/12 Complet ed US scan of upper abdomen 38 08/31/12 Completed Mammogram 39 08/04/12 Completed Barium swallow 40 05/31/08 Complet ed X-ray of lumbar spine and pelvis 41 09/22/[address] of paranasal sinuses 42 10/19/05 Completed MRI of brain 43 10/19/05 Completed US pelvic scan 44 08/22/03 Complet ed US pelvic scan 45 07/11/[address] of abdomen and pelvis 46 07/04/03 Completed US scan of abdomen and pelvis 47 06/29/03 Completed Light therapy 48 Complete d Tubal ligation Completed Uterine polyp 49 Complete d [place] tooth Completed [address] [place] [address] Impression: 1. Osteoarthritic changes. [facility]: 1. No [facility] of acute [facility] Impression: ACR BI-RADS [id number] 2: BENIGN 1. No evidence of malignancy 4Right leg - no DVT 5one 6 mm polyp in the asending colon - removed with a cold snare. -diverticulosis in the sigmoid in the desending colon -otherwise normal repeat in 5 years 6path - tubular adenoma 71. No acute intraabdominal or intrapelvic abnormality. 2. No bowel obstruction or bowel wall thickening. Normal appendix. 3. Colonic diverticulitis. 8AP SPINE -T-SCORE OF -2.5 FEMUR NECK LEFT OF -2.4 FEMUR NECK RIGHT 0.717 T-SCORE OF -2.3 FEMUR TOTAL LEFT OF -1.9 FEMUR TOTAL RIGHT OF -1.9 Z-SCORE 0.8 NEXT APPT - NOV 2023 9No mammographic evidence of malignancy. 1 year screening is recommended. 10No mammographic evidence of malignancy. 1 year screening is recommended. 111. Stable bilateral mammograms, without mammographic evidence of malignancy. 1 year screening mammogram recommended. 2. Clinical follow up is recommended for the biltareal nonfocal intermittent mastalgia. 12Impression: ACR BI-RADS CATEGORY 2: BENIGN There is no mammographic evidence of malignancy. A 1 year scsreening mammogram is recommended.(08/24/2019) The patient will receive writtten notification of the results. 13T-scores : spine -2.6, L femur neck -2.4, R femur neck -2.1, total femur -1.9. FRAX scores : major osteoporotic fx 20.6%, hip 5.3%. 14There is no mammographic evidence of malignancy. 1 year screening is recommended. 15Grossly patent sinuses. 16sinuses & mastoids all clear 17No mammographic evidence of malignancy. A 1 year screening is recommended. 18No fracture or dislocation or dislocation with in the left foot Mild dorsal soft tissue swelling at the level of the anterior talus Plantar heel spur Diffuse osteopenia 19Left Eye. 20[facility] 21[facility] Impression: 1. No change in alignment of the minimally displaced distal left fibular fracture. No significant callus formation 22[facility] Impression: Minimally displaced distal left fibular fracture unchanged since prior exam No ankle mortise widening. 23Oblique nondisplaced fracture distal fibula. Soft tissue edema. 24Oblique nondisplaced fracture distal fibula. Soft tissue edema 25Follow up recommended August 2017. 26T-scores : spine -2.3; L femur neck -2.3; R femur neck -2.1; total femur -1.8 27[facility] Impression: There is no mammographic evidence of malignancy. A 1 year screening mammogram is recommended. 28[facility] impression- No fractures 29Benign. No evidence of malignancy. 30wnl,repeat 1 yr 31Neg for intraepithelial lesion or malignancy. 32D&C, polypectomy. 33wnl, repeat 10yrs 34Normal exam 35Atrophic appearing endometrium present. Vast majority of specimen consists of mucus and atrophic appearing squamous and endocervical ephithelium 36Thickened endometrial lining of 14mm 37Abnormally thickened endometrium at 14mm. May be secondary to endometrial hyperplasia vs neoplasia with f/u recommended. Nonvisualization of ovaries most likely secondary to age related atrophic change. 38Right upper quadrant. Unremarkable sonographic eval. No gallstones, no evidence of acute cholecystitis. 39No evidence of malignancy. One year screening recommended. 40crypt absecc mid left tonsil 41Osteoporosis. No acute compression fracture. Mild facet arthropathy at L5-S1 level. 42Mild bilateral alicia bullosa containing air fluid levels. Otherwise clear. 43Mild atrophy and small amount of probably vessel ischemic disease. Possible mild left mastoiditis. 44Complex cyst again noted on left ovary. May be slightly smaller than previous study. f/u recommended in 3-6mths. 45Complex 11mm nodule within left ovary. Nonspecific and f/u US in 6 week recommended. Nonvisualization of right ovary. 46Slightly heterogeneous soft tissue density in lower left anterior pelvis, most likely representing anteverted or anteflexed uterus deviated to left. Repeat US could be performed to confirm uterus. Otherwise unremarkable. 47Nonvisualization of pancreas secondary to overlying gas. Nonvisualization of ovaries secondary to overlying gas. Otherwise neg US of abdomen and pelvis. 48on face 03/2018 49surgery; benign, Nov 2012 Vital Signs Most recent to oldest [Reference Range]: 1 Height 171.0 cm (03/14/24 10:56 AM) Patient Weight 64.0 kg (03/14/24 10:56 AM) Body Mass Index 21.89 kg/m2 (03/14/24 10:56 AM) Heart Rate 73 bpm (03/14/24 10:56 AM) Blood Pressure 167/95mmHg (03/14/24 10:56 AM) BP Location # 1 Left Arm, Non-invasive (03/14/24 10:56 AM) Social History Social History Type Response Smoking Status Never smoked cigaret tanya Sex Female Sex Representation Female (finding) Urogyn Outpt Note * MD Rivera, Laura S: PERFORM Event Display: Urogyn Outpt Note Authored Date: Chief Complaint New Patient, Urinary Incontinece and Prolapse. History of Present Illness 73 year old female presenting for evaluation of prolapse. Her specific symptoms include: told she had prolapse by her PCP; she herself denies pelvic pressureor sensation of vaginal bulge. Seen by PCP in December who notedExt genitalia (exam chaperoned by medical student, Sherly Gabriel)somewhat dry with mild atrophic changes, urethra with caruncle, able to feel cystocele bulging just inside introitus with coughing. [1] Urinary symptom review: Daytime voids: q 2 hours Urinary incontinence: with urgency Stress incontinence:no UI without sensory awareness:no Enuresis:no Urgency: yes Nocturia: 3 Difficulty starting her void: no Post-void dribbling:no Double-voiding:no Incomplete emptying: no Hematuria:no History of renal/bladder stones:no History of renal/bladder infection:no Prior evaluation:no; Prior treatment: no PO fluid intake: kombucha, water Bowel symptom review: alternates between looser stools and constipation; dietary management I have reviewed her case notes, blood work, urine and imaging results, which are scanned into her EMR. Urogyn new patientpacket and3 daydiary wassent to the [place] office andnot available at today's visitfor margarita. Review of Systems Negative except as per HPI Physical Exam Vitals & Measurements HR:73(Monitored) BP:167/95 HT:171.0cm WT:64.000kg(Dosing) WT:64.0kg BMI:21.89 Bacon Skin Lifter: Kerri Butler General: No acute distress Neuro: Alert awake and oriented Psych: Normal mood and affect, pleasant and cooperative Abdomen: Soft, non-tender, non-distended, No incisions; No hernia External Genitalia: atrophic labia Vagina:atrophic epithelium Urethra:caruncle Suburethral region:no abnormalities Cervix:no abnormalities Uterus:normal size and contour Adnexa:No fullness or tenderness Vaginal bulge:No evidence of prolapse on Valsalva or cough Cough stress test:negative urethral hypermobility:not present PFM: 3/5 strength, no trigger points, no tender points POPQ Examination Aa-3 Ba-3 C -10 GH 0.5 PB2.5 TVL 10 Ap -3 Bp -3 D-10 Stage0 Ext: non-tender, no edema Assessment/Plan 1.Urethral caruncle No evidence of pelvic organprolapse on examination. We reviewed urethral caruncle isbenign and due to hypoestrogenic state. Reviewed initiation of vaginal estradiol if symptomatic. She would like to monitor at this time. 2.Urge incontinence For OAB/UUI, we reviewed the pathophysiology, etiology and management in great detail. Handouts were provided for additional education.She understandsthat OAB is a chronic disorder that may not be "curable"; however, treatments canimprovequality of life significantly. We reviewed the AUA guidelines on OAB management in detail. She has optimized her fluid intake and we did review urge suppression techniques, as well as formal PFPT or medication. She will consider this. 3.Body mass index [BMI] 21.0-21.9, adult She is not scheduled to follow-up at this time and will follow-up as needed if interested in any ofthe above interventions. On the day of the encounter, I personally spent a total time of35 minutes reviewing prior medicalvisits and tests, obtaining history, performing a medically appropriate exam/evaluation, interpreting results, ordering medications, tests, and/or procedures and communicating to the patient and other healthcare professionals. Problem List/Past Medical History Ongoing Abdominal pain, acute, generalized Actinic keratosis Annual physical exam Blood pressure elevated without history of HTN Marquez angioma Chronic constipation Encounter for follow-up examination after completed treatment for cancer ETD (eustachian tube dysfunction) FAMILY HISTORY OF OTHER SPECIFIED MALIGNANT NEOPLASM Hx of skin malignancy Inflamed seborrheic keratosis Left carotid bruit Lentigo Leukopenia Longitudinal ridging of nail Milia Ocular migraine Onychomycosis of left great toe Onychomycosis of right great toe Osteopenia Osteoporosis Seborrheic keratoses SK (seborrheic keratosis) Skin cancer, basal cell Tinea unguium Weight disorder Resolved Basal Cell Carcinoma Of Chin BCC (basal cell carcinoma of skin) Carotid bruit Neoplasm of uncertain behavior of skin Onychomycosis Procedure/Surgical History X-ray of left foot| Service Date: 10/20/2022Hand X-ray| Service Date: 10/20/2022Mammogram|Service Date: 10/02/2022Ultrasound of blood vessel of lower extremity| Service Date: 07/11/2022olonoscopy| Service Date: 3CT of abdomen and pelvis| Service Date: 2Bone density scan| Service Date: 11/14/2021Mammogram| Service Date: 09/26/2021Mammogram| Service Date: 09/03/2020have biopsy and cauterization of skin| Service Date: 04/29/2020Mammogram| Service Date: 08/29/2019Mammogram| Service Date: 08/23/2018Shave biopsy and cauterisation of skin| Service Date: 06/16/2018DEXA (dual energy X-ray photon absorptiometry) scan of lateral spine| Service Date: 03/01/2018Mammogram| Service Date: 08/19/2017Sinuses X-ray| Service Date: 12/21/2016Mammogram| Service Date: 08/18/2016Foot X-ray| Service Date: 06/30/2016Cataract surgery| Service Date: 06/03/2016Phacoemulsification, right eye| Service Date: 05/20/2016Cataract extraction| Service Date: 05/2016X-ray of left ankle| Service Date: 10/11/2015Bilateral standing mortise views of the ankles| Service Date: 09/30/2015X-ray of left ankle| Service Date: 09/28/2015X-ray of left ankle| Service Date: 09/28/2015Bone density scan| Service Date: 08/26/2015Mammogram-bilateral with CAD| Service Date: 08/14/[id number]-[id number] tibia/fibula 2 views| Service Date: 04/17/2015Mohs micrographic surgery| Service Date: 04/10/2015Shave biopsy| Service Date: 03/19/2015Mammogram| Service Date: 08/10/2014Dual energy X-ray absorptiometry (DEXA) scan T score| Service Date: 08/17/2013PAP test date| Service Date: 07/12/2013Papanicolaou smear| Service Date: 07/12/2013Shave biopsy of skin| Service Date: 01/03/2013Hysteroscopy| Service Date: 11/24/19 13Colonoscopy| Service Date: 10/20/2012Colonoscopy| Service Date: 10/20/2012Endometrial biopsy| Service Date: 10/03/2012US pelvic scan| Service Date: 08/31/2012US scan of upper abdomen| Service Date: 08/31/2012Mammogram| Service Date: 08/04/2012arium swallow| Service Date: 05/31/2008X-ray of lumbar spine and pelvis| Service Date: 09/22/2006MRI of brain| Service Date: 10/19/2005CT of paranasal sinuses| Service Date: 10/19/2005US pelvic scan| Service Date: 08/22/2003US pelvic scan| Service Date: 07/11/2003CT of abdomen and pelvis| Service Date: 07/04/2003US scan of abdomen and pelvis| Service Date: 06/29/2003Tubal ligationWisdom toothUterinepolypLight therapy Medications atorvastatin(atorvastatin 10 mg oral tablet), 10 mg= 1 tab, PO, Daily, 3 refills calcium carbonate(Calcium Liquid Softgel) tavaborole topical(Kerydin 5% topical solution), See Instructions, 6 refills Allergies Dustcongestion MoldNasal congestion No Known Medication Allergies Social History Smoking Status Never smoked cigarettes Alcohol - Denies Alcohol Use Type:Beer Frequency:1-2 times per month Exercise Times per week:5-6 times/week Exercise type:Walking - Comments: walking 4 miles a day, does do 10,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 Breast cancer: Sister (Dx at 64). Glaucoma: Father. Heart attack: MGF and PGF. Heart disease: Mother. Hypertension: Mother. Rheumatoid arthritis: Daughter. Health Status Family Member(s) Immunizations Vaccine Date Status tetanus/diphtheria/pertuss, acel (Tdap) 05/31/2023 Given Comments : Early/Late Reason: Other : N/A RSV Vaccine Unspecified 02/18/2023 Recorded SARS COVID Vaccine Unspecified 12/07/2022 Recorded SARS-CoV-2 mRNA (Pfizer 12+) bivalent 12/19/2021 Recorded SARS-CoV-2 mRNA ([id number]-erb) 06/21/2021 Recorded SARS-CoV-2 (COVID-19) mRNA BNT-162b2 vax 01/06/2021 Recorded zoster vaccine, inactivated 10/15/2020 Recorded zoster vaccine, inactivated 07/24/2020 Recorded Comments : site left upper arm, radiologist physician-HeTexted, lot# [id number], exp 12/20/2021, per Haven Perez SARS-CoV-2 (COVID-19) mRNA BNT-162b2 vax 05/24/2020 Recorded Comments : Unit: Unknown Route: Intramuscularly Director Of Managed Care: [employer] SARS-CoV-2 (COVID-19) mRNA BNT-162b2 vax 04/26/2020 Recorded Comments : Unit: Unknown Route: Intramuscularly Director Of Managed Care: [employer] influenza virus vaccine, inactivated 12/11/2019 Given influenza virus vaccine, inactivated 01/04/2019 Given influenza virus vaccine, inactivated 12/22/2017 Given influenza virus vaccine, inactivated 01/06/2017 Given influenza virus vaccine, inactivated 01/21/2016 Recorded pneumococcal 13-valent vaccine 08/09/2015 Given zoster vaccine live 02/27/2015 Recorded pneumococcal 23-valent vaccine 01/11/2015 Given influenza virus vaccine, inactivated 01/11/2015 Given tetanus/diphtheria/pertuss, acel (Tdap) 06/01/2012 Recorded tetanus/diphtheria/pertuss, acel (Tdap) 2012 Recorded influenza virus vaccine, inactivated 2012 Recorded tetanus/diphtheria/pertuss, acel (Tdap) 03/15/2012 Recorded Comments : 2017-06-01: Historical information-source unspecified influenza virus vaccine, inactivated 03/15/2012 Recorded Comments : 2017-06-01: Historical information-source unspecified [1]Office Visit Note; MD Sanchez Amy L 01/11/2024 15:30 EDT Electronic Signature on File CC: Ivet Sanchez MD [address] [place] [id number] Electronically Reviewed/Signed by: Laura Stafford MD Author Signature Dt/Tm:03/14/2024 11:28 AM Department of Obstetrics/Gynecology [facility] Patient Care team information Care Team Personnel Name: MD Sanchez Amy L Position: Physician - Family Med Member Role: Primary Care Provider Address: [address] [place] [address] [place] Care Team Related Persons Name: IRON HERNADEZ
--- NOTE | 2024-03-17 15:16 | History & Physical Report ---
Date of Service March 17, 2024 Assessment & Plan (1) Dizziness: Plan: Yolanda is a 73-year-old female with past medical history of spinal stenosis, hyperlipidemia who was had 5 episodes of mild intermittent dizziness which has occurred when standing and while hypertensive in the last week which was much worse than normal 04/13. Was evaluated by telestroke possible CVA due to severity of dizziness/. Multifocal luminal irregularity on CTA neck recently concern for possible FMD, otherwise no abnormalities were seen on CTAhead/neck. Has been admitted for completion of stroke protocol per telestroke recommendations. Differential includes ischemic, orthostatic, hypertensive. Patient also has had some sinus congestion and a dry cough although no sputum production no fever no leukocytosis and chest x-ray is clear. Viral labyrinthitis with URIs not excluded, respiratory BioFire was ordered. Dizziness Due to abrupt onset of dizziness was evaluated in the ER as a stroke alert. 5 episodes in the last week, episode today upon awakening was much worse than prior. Tend to occur when standing, has not had low blood pressure. Orthostatics ordered. Arcadia-Hallpike is negative and she has not had vertiginous dizziness. - CTAneck: Multifocal luminal irregularity in bearded appearance of bilateral internal carotid arteries. Dominant patent right vertebral artery. Diminutive left vertebral artery congenital. Mid to distal cervical left vertebral flow absent, age-indeterminate - CTAhead: No acute hemorrhage, no evidence of acute CVA. No acute findings. Per telestroke patient has been dual antiplatelet loaded. Will allow for permissive hypertension for 24 hours, obtain MRI. Possibility for FMD is raised based on appearance of internal carotids. Aspirin is continued, atorvastatin dose increased. Lipid panel pending. Labetalol call for BP greater than 220/110. If MRI is negative and lower parameters to 180/100. Echo pending EKG: Sinus, no territorial ST segment elevation/depressions. No territorial T wave changes. Leukopenia Chronic. No anemia or thrombocytopenia. Stable for several years. Continue outpatient follow-up. She has not with an ANC count less than 1 Hyperlipidemia Statin adjusted as noted DVT prophylaxis: SCDs, if no discharge is seen then we will start Lovenox Diet: Heart healthy Disposition: [place] CODE STATUS: Full code (2) High cholesterol: (3) Spinal stenosis of lumbar region: History of Present Illness Primary Care Provider: Ivet Sanchez MD Yolanda is seen at the bedsideYolanda is a 73-year-old female with past medical history of of carotid bruits, hyperlipidemia, BCC, osteoporosis, bladder prolapse who presented with dizziness Medications reviewed and confirmed with [facility] system, last visit 12/2023. Take atorvastatin 10 mg daily. Patient was evaluated by telestroke. Was recommended for admission, overnight monitoring, aspirin and Plavix load, permissive hypertension, and MRI. Woke up this morning and was dizzy around 7am. Blood pressure at home was higher than normal, 171/81. Randall normal going to bed last night. This past Wednesday did go [place] [facility] [place], BP was 165/81 at that time and again higher than is typical for her. Has had dizzy spells similar to this intermittently in the morning which improve after she has been up and moving around. Spells first started about 2 weeks ago, have happened around 5 times in the last two weeks. Has had an associated discomfort in her RIGHT episcopalian and eyebrow and some stiffness in her RIGHT neck. Attributed this to chayo stress and having company. Episodes seem to last around 45 minutes then past, hour at most. Episode today was simlar but much wors ein intensity and lasted a few hours. Randall better after getting here. Sitting seemed to help at home, standing made it worse. BP is normally 150s/60s. Lowest it tends to go is 120s systolic. No blood pressures below 100. No vision change, has dry eyes chronically. No visual cuts or acuity change No weakness Since February RIGHT upper leg has been a little painful and has had tingling through the leg into the bottom of her foot. had a followup MRI which showed a pinched nerve and bulging disk and stenosis, but nothing that needed surgical intervention. She did PT which helped. Pain is improving. No focal weakness. No sensory change No chest pain No hest pressure No history of strokes, ehart attack, kidney disease Chronically leukopenic 4-5 years, stable, is not neutropenic. Medical History: Reviewed Medications: Reviewed. Surgical History: Reviewed Family history: Reviewed Allergies: Reviewed Social History: No tobacco product use, rare social ETOH use. Code Status: Full Code Allergies Allergy/AdvReac Type Severity Reaction Status Date / Time No Known Allergies Allergy Unknown Verified 03/01/24 13:17 Home Medications Medication Instructions Recorded Confirmed Type atorvastatin 10 mg tablet 10 mg PO DAILY 03/01/24 03/17/24 History acetaminophen 500 mg tablet 500 mg PO Q6H PRN Pain 03/17/24 03/17/24 History Past Med/Surg History Problem List (Updated 03/17/24 @ 15:45 by Rob Augustine MD) Dizziness Spinal stenosis of lumbar region Lumbar facet joint syndrome Lumbar radiculopathy Endometrial polyp (Acute) Medical History (Updated 03/17/24 @ 15:45 by Rob Augustine MD) High cholesterol Surgical History Status post hysteroscopic polypectomy S/P dilatation and curettage S/P tubal ligation Family History Mother Heart disease Sister Breast cancer Social History (Updated 03/01/24 @ 13:[address], RN) Smoking Status: Never smoker Hx Alcohol Use: No Hx Substance Use: No Preferred Language: Wolof Communication Ability: Effective Visual Impairment: No Limitations Hearing Ability: Normal Beliefs That Will Affect Care: None marital status: Current Living Situation: Spouse current occupational status: retired 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 NAD. Cooperative. HEENT: Atraumatic, normocephalic. Pulm: CTAB A&P. -wheezes, -rales, -rhonchi. Symmetrical chest rise. No increased work of breathing. No respiratory distress. Cardiac: RRR, -mrg. Radial pulses intact and symmetrical. Abdominal: Nontender, nondistended, soft. BS present. CRANIAL NERVES: II: Pupils equal and reactive, no relative afferent pupillary defect, no VF cuts III, IV, : EOM intact, no gaze preference or deviation, no nystagmus. V: normal sensation in V1, V2, and V3 segments bilaterally VII: no asymmetry, no nasolabial fold flattening VIII: normal hearing to speech IX, X: normal palatal elevation, no uvular deviation XI: 5/5 head turn and 5/5 shoulder shrug bilaterally XII: midline tongue protrusion MOTOR: RUE: 5/5 Shoulder internal rotation, external rotation, flexion, extension, abduction, adduction 5/5 Elbow flexion/extension, wrist flexi on/extension 5/5 it assistant strength, finger flexion/extens ion, interosseus LUE: 5/5 Shoulder internal rotation, external rotation, flexion, extension, abduction, adduction 5/5 Elbow flexion/extension, wrist flexi on/extension 5/5 it assistant strength, finger flexion/extens ion, interosseus RLE: 5/5 to hip flexion, knee flexion, ankle dorsiflexion/plantarflexion LLE: 5/5 to hip flexion, knee flexion, ankle dorsiflexion/plantarflexion SENSORY: Normal to touch in upper and lower extremities without deficit or asymmetry COORD: no tremor, no dysmetria Results & Data Results & Data Vital Signs (Past 12 Hours) Vital Signs Temp Pulse Pulse Resp BP BP Pulse Ox 03/17/24 14:48 63 03/17/24 14:42 61 16 169/87 H 100 03/17/24 14:30 59 L 171/75 H 100 03/17/24 14:23 65 18 168/83 H 100 03/17/24 11:05 36.5 C 70 16 164/81 H 98 O2 Del Method 03/17/24 14:48 03/17/24 14:42 Room Air 03/17/24 14:30 03/17/24 14:23 Room Air 03/17/24 11:05 Room Air PG Care Time/CCT Total # of Minutes Spent Total Time Spent with Patient: Total time spent is greater than 50% in coordination of care (as documented) at patient's floor/unit and/or counseling patient: Coding Level of Care Code 48646 INT INP/OBS CARE 3/75MIN Diagnoses Dizziness R42 High cholesterol E78.00 Spinal stenosis of lumbar region without neurogenic claudication M48.061 Neurogenic claudication status: without neurogenic claudication (3) Spinal stenosis of lumbar region Neurogenic claudication status: without neurogenic claudication Qualified Code(s): M48.061 - Spinal stenosis, lumbar region without neurogenic claudication
--- NOTE | 2024-03-17 15:18 | Electrocardiogram Report ---
Test Reason : Blood Pressure : */* mmHG Vent. Rate : 82 BPM Atrial Rate : 82 BPM P-R Int : 122 ms QRS Dur : 78 ms QT Int : 388 ms P-R-T Axes : 66 53 60 degrees QTcB Int : 453 ms Sinus rhythm with occasional Premature ventricular complexes and Premature atrial complexes Possible Left atrial enlargement Nonspecific ST abnormality Abnormal ECG Confirmed by Luc Suggs ([id number]) on 03/17/2024 3:18:07 PM Referred By: Confirmed By: Luc Suggs
[2024-03-17 17:11] LABS: Adenovirus PCR Not Detected (NotDetected); Bordetella parapertussis PCR Not Detected (NotDetected); Bordetella pertussis PCR Not Detected (NotDetected); Chlamydia pneumoniae PCR Not Detected (NotDetected); Coronavirus 229E PCR Not Detected (NotDetected); Coronavirus CoV-2 (COVID19)PCR Not Detected (NotDetected); Coronavirus HKU1 PCR Not Detected (NotDetected); Coronavirus NL63 PCR Not Detected (NotDetected); Coronavirus OC43PCR Not Detected (NotDetected); Human Metapneumovirus PCR Not Detected (NotDetected); Influenza A PCR Not Detected (NotDetected); Influenza B PCR Not Detected (NotDetected); Mycoplasma pneumoniae PCR Not Detected (NotDetected); Parainfluenza Virus 1 PCR Not Detected (NotDetected); Parainfluenza Virus 2 PCR Not Detected (NotDetected); Parainfluenza Virus 3 PCR Not Detected (NotDetected); Parainfluenza Virus 4 PCR Not Detected (NotDetected); Respiratory Syncytial VirusPCR Not Detected (NotDetected); Rhinovirus/Enterovirus PCR Not Detected (NotDetected)
[2024-03-17] MEDS ORDERED: ACETAMINOPHEN 325 MG TAB PO PRN (18:17)
[2024-03-17] MEDS ORDERED: PHARMACIST DISCHARGE MED REC CONSULT PRN (18:17)
[2024-03-17] MEDS ORDERED: ONDANSETRON INJ 2 MG/ML 2 ML VIAL IV PRN (18:17)
[2024-03-17] MEDS ORDERED: POLYETHYLENE (MIRALAX) 17 GM PACK PO PRN (18:17)
[2024-03-17 19:31] VITALS: RESP 18
--- NOTE | 2024-03-18 | Magnetic Resonance Report ---
Exam(s): MRI HEAD Without Contrast EXAM: MR Head Without Intravenous Contrast CLINICAL HISTORY: Reason for exam: cva eval. TECHNIQUE: Magnetic resonance images of the head/brain without intravenous contrast in multiple planes. COMPARISON: Prior head CT from March 17, 2024. FINDINGS: Brain: Minimal nonspecific white matter changes. The flow voids at the base the brain are intact. No mass. No hemorrhage. No acute infarct. Ventricles: Unremarkable. No ventriculomegaly. Bones/joints: Unremarkable. No acute fracture. Sinuses: Unremarkable as visualized. No acute sinusitis. Mastoid air cells: Unremarkable as visualized. No mastoid effusion. Orbits: Bilateral lens replacements. IMPRESSION: No evidence of acute intracranial pathology. Electronically signed by: Jess Senior MD 03/17/24 23:58 PM
[2024-03-18 07:28] VITALS: O2SAT 100
[2024-03-18 07:53] LABS: Basophils # (auto) 0.04 K/uL (0.00-0.20); Basophils % (auto) 1.2 %; Eosinophils # (auto) 0.08 K/uL (0.00-0.50); Eosinophils % (auto) 2.5 %; Hematocrit (blood only) 39.7 % (37.0-47.0); Hemoglobin 12.7 g/dl (12.0-16.0); Immature Granulocytes # (auto) 0.01 K/uL (0.01-0.20); Immature Granulocytes % (auto) 0.3 %; Lymphocytes # (auto) 1.04 K/uL (1.20-3.40); Lymphocytes % (auto) 32.3 %; Mean Corpuscular Hemoglobin 31.4 pg (25.0-34.0); Mean Platelet Volume 10.9 fL (9.4-12.4); Monocytes # (auto) 0.36 K/uL (0.11-0.59); Monocytes % (auto) 11.2 %; Neutrophils # (auto) 1.69 K/uL (1.40-6.50); Neutrophils % (auto) 52.5 %; Platelet Count 214 K/uL (130-400); RDW Coefficient of Variation 12.6 % (11.5-14.5); RDW Standard Deviation 45.2 fL (36.4-46.3); Red Blood Count 4.05 M/uL (4.20-5.40); White Blood Count 3.22 K/ul (4.8-10.8)
[2024-03-18 08:30] LABS: BUN Creatinine Ratio 24.3 (10-20); Calcium 8.7 mg/dl (8.6-10.3); Chol HDL Ratio 2.3 (0-5); Creatinine Clr Calc Pharmacy 67.5 ml/min; Magnesium 2.2 mg/dl (1.7-2.4); Potassium 4.4 mmol/L (3.5-5.1)
[2024-03-18 08:39] LABS: Estimated Average Glucose 117 mg/dl; Hemoglobin A1C 5.7 % (4.5-5.6)
[2024-03-18] MEDS: ASPIRIN 81 MG ECTAB PO SCH (08:56)
[2024-03-18] MEDS: amLODIPine BESYLATE 5 MG TAB PO ONE (08:56)
[2024-03-18] MEDS: ATORVASTATIN 40 MG TAB PO SCH (08:56)
[2024-03-18] MEDS ORDERED: CLOPIDOGREL BISULFATE 75 MG TAB PO SCH (09:00)
--- NOTE | 2024-03-18 10:06 | Discharge Summary ---
Discharge Summary Date of Service March 18, 2024 Principal Dx & Hospital Course #1 = Principal Diagnosis (1) Dizziness: Yolanda is a 73-year-old female with past medical history of spinal stenosis, hyperlipidemia who was had 5 episodes of mild intermittent dizziness which has occurred when standing and while hypertensive in the last week which was much worse than normal 04/13. Was evaluated by telestroke possible CVA due to severity of dizziness/. Multifocal luminal irregularity on CTA neck recently concern for possible FMD, otherwise no abnormalities were seen on CTAhead/neck. Has been admitted for completion of stroke protocol per telestroke re commendations. Differential includes ischemic, orthostatic, hypertensive. Patient also has had some sinus congestion and a dry cough although no sputum production no fever no leukocytosis and chest x-ray is clear. Viral labyrinthitis with URIs not excluded, respiratory BioFire was ordered.Orthostatic showed hypertensive response. She returns to near baseline the next day and dizziness resolved. Symptoms did seem to correspond with hypertension and she started on amlodipine with outpatient follow-up. She was continued on aspirin 81 mg daily Dizziness Due to abrupt onset of dizziness was evaluated in the ER as a stroke alert. 5 episodes in the last week, episode today upon awakening was much worse than prior. Tend to occur when standing, has not had low blood pressure. Orthostat ics ordered. Bunny-Hallpike is negative and she has not had vertiginous dizziness. - CTAneck: Multifocal luminal irregularity in bearded appearance of bilateral internal carotid arteries. Dominant patent right vertebral artery. Diminutive left vertebral artery congenital. Mid to distal cervical left vertebral flow absent, age-indeterminate - CTAhead: No acute hemorrhage, no evidence of acute CVA. No acute findings. Per telestroke patient has been dual antiplatelet loaded. Will allow for permissive hypertension for 24 hours, obtain MRI. Possibility for FMD is raised based on appearance of internal carotids. Aspirin is continued, atorvastatin dose increased. Lipid panel pending. No stroke was seen on MRI Orthostatics did show hypertensive response Suspect symptoms were due to hypertension. With improved blood pressure patient's symptoms has resolved and she feels 90% back to normal Was started on amlodipine daily Will follow-up with PCP for blood pressure up titration and adjustments as needed At bedside reeval patient reports she feels 90% back to baseline, remaining 10% is a little bit of fatigue but she is no longer dizzy. Comfortable with discharge home with return precautions Aspirin 81 mg continued, Plavix discontinued Leukopenia Chronic. No anemia or thrombocytopenia. Stable for several years. Continue outpatient follow-up. She has not with an ANC count less than 1 Hyperlipidemia Statin adjusted as noted DVT prophylaxis: SCDs, if no discharge is seen then we will start Lovenox Diet: Heart healthy Disposition: [place] CODE STATUS: Full code (2) High cholesterol: (3) Spinal stenosis of lumbar region: (4) Hypertension: Admission HPI Per Admitting Provider Yolanda is seen at the bedsideYolanda is a 73-year-old female with past medical history of of carotid bruits, hyperlipidemia, BCC, osteoporosis, bladder prolapse who presented with dizziness Medications reviewed and confirmed with [facility] system, last visit 12/2023. Take atorvastatin 10 mg daily. Patient was evaluated by telestroke. Was recommended for admission, overnight monitoring, aspirin and Plavix load, permissive hypertension, and MRI. Woke up this morning and was dizzy around 7am. Blood pressure at home was higher than normal, 171/81. Dixon normal going to bed last night. This past Wednesday did go to [facility] [place] prol[place] evaluation, BP was 165/81 at that time and again higher than is typical for her. Has had dizzy spells similar to this intermittently in the morning which improve after she has been up and moving around. Spells first started about 2 weeks ago, have happened around 5 times in the last two weeks. Has had an associated discomfort in her RIGHT taoism and eyebrow and some stiffness in her RIGHT neck. Attributed this to chayo stress and having company. Episodes seem to last around 45 minutes then past, hour at most. Episode today was simlar but much wors ein intensity and lasted a few hours. Dixon better after getting here. Sitting seemed to help at home, standing made it worse. BP is normally 150s/60s. Lowest it tends to go is 120s systolic. No blood pressures below 100. No vision change, has dry eyes chronically. No visual cuts or acuity change No weakness Since February RIGHT upper leg has been a little painful and has had tingling through the leg into the bottom of her foot. had a followup MRI which showed a pinched nerve and bulging disk and stenosis, but nothing that needed surgical intervention. She did PT which helped. Pain is improving. No focal weakness. No sensory change No chest pain No hest pressure No history of strokes, ehart attack, kidney disease Chronically leukopenic 4-5 years, stable, is not neutropenic. Medical History: Reviewed Medications: Reviewed. Surgical History: Reviewed Family history: Reviewed Allergies: Reviewed Social History: No tobacco product use, rare social ETOH use. Code Status: Full Code Discharge Exam General: A&Ox3. NAD. Cooperative. HEENT: Atraumatic, normocephalic. Pulm: CTAB A&P. -wheezes, -rales, -rhonchi. Symmetrical chest rise. No increased work of breathing. No respiratory distress. Cardiac: RRR, -mrg. Radial pulses intact and symmetrical. Abdominal: Nontender, nondistended, soft. BS present. CRANIAL NERVES: II: Pupils equal and reactive, no relative afferent pupillary defect, no VF cuts III, IV, : EOM intact, no gaze preference or deviation, no nystagmus. V: normal sensation in V1, V2, and V3 segments bilaterally VII: no asymmetry, no nasolabial fold flattening VIII: normal hearing to speech IX, X: normal palatal elevation, no uvular deviation XI: 5/5 head turn and 5/5 shoulder shrug bilaterally XII: midline tongue protrusion MOTOR: RUE: 5/5 Shoulder internal rotation, external rotation, flexion, extension, abduction, adduction 5/5 Elbow flexion/extension, wrist flexion/extension 5/5 database security expert strength, finger flexion/extension, interosseus LUE: 5/5 Shoulder internal rotation, external rotation, flexion, extension, abduction, adduction 5/5 Elbow flexion/extension, wrist flexion/extension 5/5 database security expert strength, finger flexion/extension, interosseus RLE: 5/5 to hip flexion, knee flexion, ankle dorsiflexion/plantarflexion LLE: 5/5 to hip flexion, knee flexion, ankle dorsiflexion/plantarflexion SENSORY: Normal to touch in upper and lower extremities without deficit or asymmetry COORD: no tremor, no dysmetria Discharge Plan Discharge Items Patient Disposition: Home - Self-Care Reason For Visit: DIZZINESS, CVA EVAL Discharge Diagnosis: Dizziness, hypertension Activity: Resume your previous activity Non-emergency contact: Primary Care Provider Call non-emergency contact if: you have any medication questions, your symptoms worsen and your pain is not controlled Follow-up/Referrals: Ivet Sanchez MD [Primary Care Provider] - (within 1-2 weeks) Diet: Heart Healthy Addtl Attending Provider Instructions: You are seen in the hospital for dizziness. Your symptoms coincided with elevated blood pressure, and your blood pressure increased on standing. You did not have any focal neurologic deficits or other signs of stroke on your MRI did not show any evidence of stroke. You have been started on blood pressure medicine, amlodipine. This can cause leg swelling in some people. Please take amlodipine 5 mg by mouth daily and follow-up with your PCP for further adjustments. If you develop any new or worsening symptoms including fever, chills, sweats, chest pain, chest pressure, difficulty breathing, uncontrolled nausea/vomiting, rash, wheezing, passing out or nearly passing out, bleeding, black/bloody bowel movements, or other new or concerning symptoms please call your primary care physician, or call 911 for re-evaluation in the emergency department if you are very concerned. Pending Studies at Discharge: No Stand-Alone Forms: My [facility] [employer], Smoking Cessation Medications and DC Order Prescriptions: New aspirin 81 mg Tablet,Delayed Release (Dr/Ec) 81 mg PO QAM 30 Days Qty: 30 0RF amlodipine 5 mg tablet 5 mg PO DAILY Qty: 30 0RF Continued acetaminophen 500 mg Tablet 500 mg PO Q6H PRN (Reason: Pain) Discontinued atorvastatin 10 mg tablet 10 mg PO DAILY Discharge Orders: Discharge Order (Routine); Ordered 03/18/24 Ordered By: Rob Augustine Admission Data Admit Date/Time: 03/17/24 15:41 Attending Provider: Rob Augustine Admit Provider: Rob Augustine Primary Care Provider: Ivet Sanchez Other Providers: Rob Augusitne Hospital Stay Data Consultations 03/17/24 13:56 ED Decision to Admit Stat Diagnostic Imagining Performed 03/17/24 11:51 CT angio head wo/w Stat CT angio neck with con Stat 03/17/24 18:17 MR brain wo con Routine Discharge Instructions Given to Patient (Per Discharging Provider) You are seen in the hospital for dizziness. Your symptoms coincided with elevated blood pressure, and your blood pressure increased on standing. You did not have any focal neurologic deficits or other signs of stroke on your MRI did not show any evidence of stroke. You have been started on blood pressure medicine, amlodipine. This can cause leg swelling in some people. Please take amlodipine 5 mg by mouth daily and follow-up with your PCP for further adjustments. If you develop any new or worsening symptoms including fever, chills, sweats, chest pain, chest pressure, difficulty breathing, uncontrolled nausea/vomiting, rash, wheezing, passing out or nearly passing out, bleeding, black/bloody bowel movements, or other new or concerning symptoms please call your primary care physician, or call 911 for re-evaluation in the emergency department if you are very concerned. Total Time Total Time Spent Total Time Spent (In Minutes): Time spend day of discharge 35 minutes including direct patient care, documentation, review of labs and images, and coordination of care. Coding Level of Care Code 46694 INP/OBS DISCH >30 MIN Diagnoses Dizziness R42 High cholesterol E78.00 Spinal stenosis of lumbar region without neurogenic claudication M48.061 Neurogenic claudication status: without neurogenic claudication Hypertension I10 Hypertension type: unspecified
[2024-03-18] MEDS ORDERED: STROKE PATIENT DISCHARGE STA (10:08)
[2024-03-18 11:33] VITALS: BP 165/72; TEMP 97.7
--- NOTE | 2024-03-18 12:53 | XCELERA ---
[id number]
[2024-03-18 14:05] VITALS: PULSE 66
== END 2024-03-18 14:34 | disposition home or self-care (01) | DRG 149 ==
LOC: ED 10:19 → 2S 15:41 → INTOOBSV 15:41 → 2S 17:46